=== PATIENT | female | born 1955 | race Caucasian/White ===

== ENCOUNTER → 2021-05-21 10:59 | Outpatient (CLI) | payer MEDICARE, SELFPAY ==
--- NOTE | ~2021-05-21 | MM_ITS ---
EXAMINATION: MM screening [facility] BI w tl HISTORY: Screening TECHNIQUE: Craniocaudal and mediolateral oblique 3-D tomosynthesis images were obtained and synthetic 2-D images were generated. CAD analysis was submitted and interpreted. COMPARISON: Comparison to multiple prior studies sequentially, with oldest reviewed study dated 03/07. BREAST PARENCHYMAL COMPOSITION: There are scattered areas of fibroglandular density. FINDINGS: There is no evidence of suspicious mass, calcification, or architectural distortion to sugg est malignancy in either breast. There has been no suspicious interval change. IMPRESSION: 1. No mammographic evidence of malignancy. 2. Recommend routine screening mammography in one year. BI-RADS Category 1: Negative Reviewed, dictated and finalized at location A.
--- NOTE | ~2021-05-21 | DEXA_ITS ---
Bone Density Report Name: Yessy Reed Age: 65 Sex: Female Ethnicity: White Date of : 1955 Indication: osteopenia; postmenopausal Referring Provider: MADELIN LUIS Study: Bone densitometry was performed. Exam Date: May 21, 2021 Accession number: [id number] Bone Density: Region BMD T-score Z-score Classification AP Spine (L1-L4) 0.927 -1.1 0.8 Osteopenia Femoral Neck (Left) 0.657 -1.7 -0.1 Osteopenia Total Hip (Left) 0.773 -1.4 0.0 Osteopenia Femoral Neck (Right) 0.656 -1.7 -0.1 Osteopenia Total Hip (Right) 0.766 -1.4 -0.1 Osteopenia Total Hip Mean 0.770 -1.4 -0.1 Osteopenia World Health Organization criteria for BMD impression classify patients as: Normal (T-score at or above -1.0), Osteopenia (T-score between -1.0 and -2.5), or Osteoporosis (T-score at or below -2.5). 10-year Fracture Risk(1): Major Osteoporotic Fracture 11% Hip Fracture 2.0% Reported Risk Factors: [place] (), Neck BMD=0.656, BMI=20.4, alcohol use (1) FRAX(R) Version 3.08. Fracture probability calculated for an untreated patient. Fracture probability may be lower if the patient has received treatment. Previous Exams: Region Exam Age BMD T-score BMD Change BMD Change Date g/cm2 vs Baseline vs Previous AP Spine(L1-L4) 05/21/2021 65 0.927 -1.1 0.020 0.020 05/19/2019 63 0.907 -1.3 Total Hip(Left) 05/21/2021 65 0.773 -1.4 0.012 0.012 05/19/2019 63 0.761 -1.5 Total Hip(Right) 05/21/2021 65 0.766 -1.4 0.009 0.009 05/19/2019 63 0.757 -1.5 *Denotes significance at 95% confidence level, LSC for AP Spine = 0.022 g/cm2, LSC for Total Hip = 0.027 g/cm2 Clinical Information Provided by Patient: Has 3 or more alcoholic drinks per day Has used the following medications: Vitamin D, Calcium Patient maximum height was 63.8 Menopause Age: 50 No regular weight bearing exercise Drinks caffeinated beverages Onset of menses at age 10 Number of children 2 Impression: The patient has low bone mass, based on the Left Femoral Neck T-score. The patient has an estimated ten-year risk of hip fracture of 2% and an estimated ten-year risk of major fracture of 11%, based on the WHO FRAX algorithm. The patient has risk factors, including: excessive alcohol use. No significant bone loss was observed. Discussion: BONE DENSITY IS LOW AT ONE OR MORE SKELETAL SITES. This patient's lowest T-score
== END ==
PROVIDERS: PCP Family Medicine; Visit Provider Family Medicine
DX: Z12.31 Encounter for screening mammogram for malignant neoplasm of breast (principal); Z78.0 Asymptomatic menopausal state; M85.89 Other specified disorders of bone density and structure, multiple sites
CPT/HCPCS: 77063; 77067; 77080

== ENCOUNTER 2022-06-17 08:00 | Outpatient (CLI) | payer MEDICARE, SELFPAY ==
[2022-06-17 20:02] LABS: Alanine Aminotransferase 12 U/L (6-35); Alkaline Phosphatase 51 U/L (38-126); Anion Gap 10 mmol/L (8-16); Aspartate Amino Transferase 46 U/L (14-36); Bilirubin,Total 0.4 mg/dL (0.2-1.3); Blood Urea Nitrogen 17 mg/dL (7-17); Calcium 9.1 mg/dL (8.4-10.2); Carbon Dioxide 29 mmol/L (22-30); Chloride 103 mmol/L (98-107); Cholesterol 173 mg/dL (0-200); Estimated Glomerular Filt Rate > 60; Glucose 82 mg/dL (65-110); HDL Direct 67 mg/dL; Sodium 142 mmol/L (137-145); Triglycerides 57 mg/dL (<150)
[2022-06-17 20:13] LABS: LDL Cholesterol Direct 78 mg/dL
[2022-06-17 20:15] LABS: Hemoglobin A1C 5.5 % (<5.7)
[2022-06-17 20:19] LABS: Basophils Percent Auto 0.7 % (0.2-1.2); Eosinophils Percent Auto 0.5 % (0-4.4); Hematocrit 39.1 % (37.0-47.0); Hemoglobin 12.9 g/dL (12.0-15.0); Immature Granulocyte Absolute 0.02 K/mm3 (0.00-0.031); Immature Granulocyte Percent A 0.5 % (0-0.5); Lymphocytes Absolute Auto 1.26 K/mm3 (0.9-3.2); Lymphocytes Percent Auto 28.7 % (18.3-44.2); Mean Corpuscular Hemoglobin 32.3 pg (26-34); Mean Corpuscular Volume 97.8 fl (80-100); Mean Platelet Volume 9.8 fl (7.4-10.4); Monocytes Absolute Auto 0.3 K/mm3 (0.1-0.6); Monocytes Percent Auto 7.5 % (2.6-8.5); Neutrophils Absolute Auto 2.7 K/mm3 (1.3-6.7); Neutrophils Percent Auto 62.1 % (45.5-73.1); Platelet Count Result 292 k/mm3 (150-375); Red Cell Distribution Width 12.8 % (11.5-14.5); White Blood Count 4.4 K/mm3 (4.5-10.0)
== END 2022-06-17 08:01 | disposition home or self-care (01) ==
PROVIDERS: PCP Family Medicine; Visit Provider Family Medicine
DX: E78.5 Hyperlipidemia, unspecified (principal); I10 Essential (primary) hypertension; R73.01 Impaired fasting glucose; Z00.00 Encounter for general adult medical examination without abnormal findings
CPT/HCPCS: 36415; 80053; 80061; 83036; 84443; 85025

== ENCOUNTER 2022-07-24 09:13 | Outpatient (CLI) | payer MEDICARE, SELFPAY ==
[2022-07-24 18:39] LABS: Basophils Percent Auto 0.6 % (0.2-1.2); Eosinophils Percent Auto 0.8 % (0-4.4); Hematocrit 38.9 % (37.0-47.0); Hemoglobin 12.6 g/dL (12.0-15.0); Immature Granulocyte Absolute 0.01 K/mm3 (0.00-0.031); Immature Granulocyte Percent A 0.2 % (0-0.5); Lymphocytes Absolute Auto 1.66 K/mm3 (0.9-3.2); Lymphocytes Percent Auto 31.6 % (18.3-44.2); Mean Corpuscular HGB Conc 32.4 g/dl (32-36); Mean Corpuscular Hemoglobin 32.1 pg (26-34); Mean Corpuscular Volume 99.2 fl (80-100); Mean Platelet Volume 9.7 fl (7.4-10.4); Monocytes Absolute Auto 0.5 K/mm3 (0.1-0.6); Monocytes Percent Auto 8.8 % (2.6-8.5); Neutrophils Absolute Auto 3.1 K/mm3 (1.3-6.7); Platelet Count Result 271 k/mm3 (150-375); Red Blood Count 3.92 M/mm3 (4.2-5.4); Red Cell Distribution Width 13.4 % (11.5-14.5); White Blood Count 5.3 K/mm3 (4.5-10.0)
[2022-07-24 19:24] LABS: Hemoglobin A1C 5.6 % (<5.7)
== END 2022-07-24 09:14 | disposition home or self-care (01) ==
LOC: ANHGOSHLAB 09:19
PROVIDERS: PCP Family Medicine; Visit Provider Family Medicine
DX: E78.5 Hyperlipidemia, unspecified (principal); I10 Essential (primary) hypertension; R73.01 Impaired fasting glucose; D72.819 Decreased white blood cell count, unspecified
CPT/HCPCS: 36415; 83036; 85025

== ENCOUNTER 2023-08-03 13:41 | Outpatient (CLI) | payer MEDICARE, SELFPAY ==
--- NOTE | ~2023-08-03 | MM_ITS ---
EXAMINATION: MM screening [facility] BI w tl HISTORY: Screening mammogram TECHNIQUE: Craniocaudal and mediolateral oblique 3-D tomosynthesis images were obtained and synthetic 2-D images were generated. CAD analysis was submitted and interpreted. COMPARISON: 05/21/2021, 05/19/2019, 04/10/2017 BREAST PARENCHYMAL COMPOSITION: The breasts are heterogeneously dense, which may obscure small masses . FINDINGS: No suspicious mass, calcification, or architectural distortion are identified in either dorita ast to suggest malignancy. There has been no suspicious interval change. IMPRESSION: 1. No mammographic evidence of malignancy. 2. Recommend routine screening mammography in one year. BI-RADS Category 1: Negative Reviewed, dictated and finalized at location A. [employer]
== END 2023-08-03 13:42 | disposition home or self-care (01) ==
LOC: ANHIMG 13:43
PROVIDERS: PCP Family Medicine; Visit Provider Physician Assistant
DX: Z12.31 Encounter for screening mammogram for malignant neoplasm of breast (principal)
CPT/HCPCS: 77063; 77067

== ENCOUNTER 2023-08-05 13:50 | Outpatient (CLI) | payer MEDICARE, SELFPAY ==
--- NOTE | ~2023-08-05 | DEXA_ITS ---
Bone Density Report Name: BRANDI TAVARES Age: 67 Sex: Female Ethnicity: White Date of : 1955 Indication: postmenopausal; screening for osteoporosis; cancer; Referring Provider: PRATIBHA CONNELL Study: Bone densitometry was performed. Exam Date: August 05, 2023 Accession number: [id number] Bone Density: Region BMD T-score Z-score Classification AP Spine(L1-L4) 0.857 -1.7 0.4 Osteopenia Femoral Neck (Left) 0.646 -1.8 -0.1 Osteopenia Total Hip (Left) 0.760 -1.5 0.0 Osteopenia Femoral Neck (Right) 0.657 -1.7 0.0 Osteopenia Total Hip (Right) 0.736 -1.7 -0.2 Osteopenia Total Hip Mean 0.748 -1.6 -0.1 Osteopenia World Health Organization criteria for BMD impression classify patients as: Normal (T-score at or above -1.0), Osteopenia (T-score between -1.0 and -2.5), or Osteoporosis (T-score at or below -2.5). 10-year Fracture Risk: FRAX not reported because: Treated for osteoporosis Clinical Information Provided by Patient: Is being treated for osteoporosis Has used the following medications: Vitamin D Has the following medical conditions: Cancer Patient maximum height was 63.5 Menopause Age: 48 No regular weight bearing exercise Drinks caffeinated beverages Onset of menses at age 10 Number of children 2 Impression: The patient has low bone mass, based on the Left Femoral Neck T-score. Discussion: It is important to ask patients whether they are taking their medications and to encourage continued and appropriate compliance with their osteoporosis therapies to reduce fracture risk. It is also important to review their risk factors and encourage appropriate calcium and vitamin D intakes, exercise, fall prevention and other lifestyle measures. Follow-Up: Consider a repeat BMD and Vertebral Fracture Assessment (VFA) exam in 2 years or sooner if medically necessary, to reassess this patient's status. Reported by: [facility] on 08/05/2023 2:17:00 PM. Reviewed, dictated and finalized at location AJoya AVILA
== END 2023-08-05 13:51 | disposition home or self-care (01) ==
LOC: ANHIMG 13:51
PROVIDERS: PCP Family Medicine; Visit Provider Physician Assistant
DX: M85.89 Other specified disorders of bone density and structure, multiple sites (principal)
CPT/HCPCS: 77080

== ENCOUNTER 2024-03-29 06:57 | Outpatient (CLI) | payer MEDICARE, SELFPAY ==
[2024-03-29 08:25] LABS: Vitamin D 25 Hydroxy 55.7 ng/mL
== END 2024-03-29 06:58 | disposition home or self-care (01) ==
LOC: ANHLAB 07:00
PROVIDERS: PCP Family Medicine; Visit Provider Family Medicine
DX: M85.80 Other specified disorders of bone density and structure, unspecified site (principal); E78.01 Familial hypercholesterolemia; Z78.0 Asymptomatic menopausal state
CPT/HCPCS: 36415; 82306

== ENCOUNTER 2024-11-17 09:03 | Outpatient (CLI) | payer MEDICARE, SELFPAY ==
[2024-11-17 14:57] LABS: Basophils Percent Auto 0.4 % (0.2-1.2); Eosinophils Percent Auto 0.1 % (0-4.4); Hematocrit 37.5 % (37.0-47.0); Hemoglobin 12.3 g/dL (12.0-15.0); Immature Granulocyte Absolute 0.04 K/mm3 (0.00-0.031); Immature Granulocyte Percent A 0.5 % (0-0.5); Lymphocytes Absolute Auto 2.21 K/mm3 (0.9-3.2); Lymphocytes Percent Auto 28.5 % (18.3-44.2); Mean Corpuscular HGB Conc 32.8 g/dl (32-36); Mean Corpuscular Hemoglobin 31.5 pg (26-34); Mean Corpuscular Volume 95.9 fl (80-100); Mean Platelet Volume 9.5 fl (7.4-10.4); Monocytes Absolute Auto 0.6 K/mm3 (0.1-0.6); Monocytes Percent Auto 7.1 % (2.6-8.5); Neutrophils Absolute Auto 4.9 K/mm3 (1.3-6.7); Neutrophils Percent Auto 63.4 % (45.5-73.1); Platelet Count Result 341 k/mm3 (150-375); Red Blood Count 3.91 M/mm3 (4.2-5.4); Red Cell Distribution Width 12.7 % (11.5-14.5); White Blood Count 7.8 K/mm3 (4.5-10.0)
[2024-11-17 17:46] LABS: Anion Gap 6 mmol/L (4-12); Blood Urea Nitrogen 23 mg/dL (7-17); Calcium 9.3 mg/dL (8.4-10.2); Carbon Dioxide 31 mmol/L (22-30); Chloride 101 mmol/L (98-107); Cholesterol 194 mg/dL (0-200); Estimated Glomerular Filt Rate > 60; Glucose 81 mg/dL (65-110); HDL Direct 88 mg/dL; Potassium 3.9 mmol/L (3.4-5.0); Sodium 138 mmol/L (137-145); Triglycerides 61 mg/dL (<150)
[2024-11-17 17:57] LABS: LDL Cholesterol Direct 78 mg/dL
[2024-11-18 03:47] LABS: Hemoglobin A1C 5.6 % (<5.7)
== END 2024-11-17 09:04 | disposition home or self-care (01) ==
LOC: ANHGOSHLAB 09:04
PROVIDERS: PCP Nurse Practitioner Family; Visit Provider Nurse Practitioner Family
DX: E78.5 Hyperlipidemia, unspecified (principal); I10 Essential (primary) hypertension; M85.80 Other specified disorders of bone density and structure, unspecified site; R42 Dizziness and giddiness; R73.01 Impaired fasting glucose
CPT/HCPCS: 36415; 80048; 80061; 83036; 84443; 85025

== ENCOUNTER 2025-01-09 12:10 | Emergency (ER) | payer MEDICARE, SELFPAY ==
[2025-01-09] VITALS (18 sets, daily range): BP systolic 117–144; BP diastolic 71–91; PULSE 60–77; RESP 10–25; TEMP 36.6; O2SAT 97–100
--- NOTE | ~2025-01-09 | XR_ITS ---
EXAMINATION: XR chest 2V DATE: 01/09/2025 12:58 INDICATION: Chest pain TECHNIQUE: PA and lateral views of the chest were obtained. COMPARISON: None FINDINGS: Hyperexpansion lungs along with increased retrosternal clear space and some flattening of the diaphra gm on the lateral projection suggestive but not diagnostic of COPD. No airspace opacities, pulmonary edema, pleural effusion or pneumothorax. Heart size is normal. IMPRESSION: 1. Hyperexpansion of the lungs suggestive but not diagnostic of COPD. No acute cardiopulmonary diseas e. Reviewed, dictated and finalized at location A. IMPRESSION: 1. Hyperexpansion of the lungs suggestive but not diagnostic of COPD. No acute cardiopulmonary disease.
--- NOTE | 2025-01-09 12:12 | ECG_ITS ---
Test Date: 2025-01-09 12:27:30 Measurements Intervals [place] Rate: 66 P: 73 GA: 149 QRS: 88 QRSD: 89 T: 61 QT: 399 QTc: 420 Interpretive Statements SINUS RHYTHM POSSIBLE RIGHT VENTRICULAR CONDUCTION DELAY BORDERLINE ST-T WAVE ABNORMALITY- ANTERIOR LEADS BORDERLINE ECG No previous ECG available for comparison Electronically Signed On 01-09-2025 12:52:48 CDT by Nicola Shea D.O.
[2025-01-09 12:59] LABS: Basophils Percent Auto 0.7 % (0.2-1.2); Eosinophils Percent Auto 0.5 % (0-4.4); Hematocrit 39.2 % (37.0-47.0); Immature Granulocyte Absolute 0.02 K/mm3 (0.00-0.031); Immature Granulocyte Percent A 0.5 % (0-0.5); Lymphocytes Absolute Auto 1.24 K/mm3 (0.9-3.2); Mean Corpuscular HGB Conc 33.2 g/dl (32-36); Mean Corpuscular Volume 96.6 fl (80-100); Mean Platelet Volume 9.7 fl (7.4-10.4); Monocytes Absolute Auto 0.3 K/mm3 (0.1-0.6); Monocytes Percent Auto 7.4 % (2.6-8.5); Neutrophils Absolute Auto 2.8 K/mm3 (1.3-6.7); Neutrophils Percent Auto 62.9 % (45.5-73.1); Platelet Count Result 202 k/mm3 (150-375); Red Blood Count 4.06 M/mm3 (4.2-5.4); Red Cell Distribution Width 13.1 % (11.5-14.5); White Blood Count 4.4 K/mm3 (4.5-10.0)
[2025-01-09 13:07] LABS: Alanine Aminotransferase 11 U/L (6-35); Albumin Level 4.6 g/dL (3.5-5.1); Alkaline Phosphatase 54 U/L (38-126); Anion Gap 10 mmol/L (4-12); Aspartate Amino Transferase 23 U/L (14-36); Bilirubin,Total 0.4 mg/dL (0.2-1.3); Blood Urea Nitrogen 16 mg/dL (7-17); Calcium 9.4 mg/dL (8.4-10.2); Carbon Dioxide 28 mmol/L (22-30); Chloride 100 mmol/L (98-107); Estimated CRCL calculation 57 ml/min; Estimated Glomerular Filt Rate > 60; Glucose 100 mg/dL (65-110); Lipase 44 U/L (23-300); Potassium 3.6 mmol/L (3.4-5.0); Sodium 138 mmol/L (137-145)
[2025-01-09 13:08] LABS: INR 0.9; Prothrombin Time 12.7 Seconds (11.1-14.7)
[2025-01-09 13:18] LABS: Troponin I < 0.012 ng/mL (0.000-0.034)
--- NOTE | 2025-01-09 15:28 | ECG_ITS ---
Test Date: 2025-01-09 15:32:08 Measurements Intervals [place] Rate: 64 P: 64 AK: 158 QRS: 77 QRSD: 93 T: 56 QT: 408 QTc: 422 Interpretive Statements SINUS RHYTHM INCOMPLETE RIGHT BUNDLE BRANCH BLOCK BASELINE ARTIFACT- I, III, AVR, AVL, AVF BORDERLINE ECG Compared to ECG 01/09/2025 12:27:30 No significant changes Electronically Signed On 01-09-2025 15:54:51 CDT by Nicola Shea D.O.
[2025-01-09 15:48] LABS: Troponin I < 0.012 ng/mL (0.000-0.034)
[2025-01-09 15:53] LABS: D Dimer 0.37 ug/mL (<0.48)
--- NOTE | 2025-01-09 15:55 | ED_ITS ---
HPI - Chest Pain General Chief Complaint: Chest Pain Stated Complaint: Upper chest pain, lightheaded Time Seen by Provider: 01/09/25 14:46 Source: patient, RN notes reviewed and old records reviewed Mode of arrival: ambulatory Limitations: no limitations History of Present Illness HPI narrative: This is a 69 year old female with history of hypertension who presents for evaluation chest discomfort. She states this morning while she was eating breakfast she felt upper chest discomfort. She describes as muscle ache that goes across her collar bones. She denies cough, shortness of breath, vomiting, fever. She states her discomfort may be worse with breathing. She denies history of lung disease or heart disease. Her pain has been intermittent. She also reports history of anxiety and while she was riding in her car she felt anxiety , hyperventilated and reports feeling like she was going to pass out. Related Data Home Medications ?Medication ?Instructions ?Recorded ?Confirmed ?Last Taken ?Type cholecalciferol (vitamin D3) 50 50 mcg PO DAILY 07/30/22 01/09/25 Unknown History mcg (2,000 unit) capsule Allergies Allergy/AdvReac Type Severity Reaction Status Date / Time Latex, Natural Rubber AdvReac Unknown Unknown Verified 01/09/25 15:32 [facility] Past Medical History Medical History Normal colonoscopy 2016 normal/repeat in 10 years Symptomatic menopausal or female climacteric states Sacroiliac joint pain COVID-19 12.9.20 positive/ symptoms Family History Family History Sibling Family history of cardiovascular disease Mother Family history of dementia Hypertension Family history of arthritis Father Family history of lung cancer Family history of coronary artery disease Grandparent Family history of coronary artery disease Other Family history of anemia Social History Social History Smoking status: Former smoker Smoking end date: 09/21/83 Alcohol intake: current Drinks per week: 17 Substance use: never Substance use type: does not use Lack of Transportation: No Lack of Food: Never True Current Housing: I Have Housing Concerned About Future Housing: No Difficulty Paying Gas/Electric Bills: No Difficulty Paying for Meds: No Currently Unemployed: No Education: High School Diploma/GED Difficulty w/ Childcare or Family Care: No Living arrangements: with family Occupation/Education: retired Gender identity (if verbalized by the patient): Female Spiritual care concerns: No Agree to blood products: Yes Exam 2 Narrative: GENERAL: Well-appearing, well-nourished, and in no acute distress. HEAD: Normocephalic, atraumatic EYES: PERRLA and EOMI, conjunctiva clear without discharge THROAT:Mucous membranes moist, Oropharynx normal without erythema, exudate, peritonsillar swelling or fluctuance NECK: Supple, without lymphadenopathy or mass RESPIRATORY: No respiratory distress, Airway patent, Respirations non-labored, Clear to auscultation without rales, rhonchi or wheeze HEART: Regular rate and rhythm. No murmur heard. Normal peripheral pulses. ABDOMEN: Soft, nontender, nondistended, normal active bowel sounds. No masses. No rebound or guarding, No organomegaly. EXTREMITIES: No edema, normal strength with full range of motion. SKIN: Warm, dry, normal color without rash NEURO: Alert and oriented x3. CN 2-12 grossly intact. No focal deficits. PSYCH: Normal mood and affect. Course Reevaluation(s) Reevaluation #1: Patient states that her discomfort has complete resolved and it was resolving prior to nitro. I have discussed troponin is negative and d sonia negative. She was given return precautions and that she needed for follow up with PCP. NC has been ruled out but I discussed she will still benefit from outpatient assessment for heart disease. Date: 01/09/25 Time: 16:38 Vital Signs Vital signs: Vital Signs Temperature 97.9 F 01/09/25 12:31 Pulse Rate 70 01/09/25 12:31 Respiratory Rate 16 01/09/25 12:31 Blood Pressure 133/76 01/09/25 12:31 Pulse Oximetry 100 01/09/25 12:31 Oxygen Delivery Room Air 01/09/25 12:31 Temperature 97.9 F 01/09/25 12:31 Pulse Rate 64 01/09/25 16:27 Respiratory Rate 17 01/09/25 16:27 Blood Pressure 140/88 01/09/25 16:27 Pulse Oximetry 100 01/09/25 16:27 Oxygen Delivery Room Air 01/09/25 15:30 MDM - Chest Pain Differential Diagnosis Differential diagnosis: Likely fracture of rib, stable angina, unstable angina pectoris, atypical chest pain, costochondritis and chest pain Medical Records Data Attestation: I reviewed the patient's medical records. Lab Data Attestation: I reviewed the patient's lab results. 01/09/25 12:49 01/09/25 12:49 Labs: Lab Results 01/09/25 01/09/25 01/09/25 Range/Units 12:48 12:49 15:23 WBC 4.4 L (4.5-10.0) K/mm3 RBC 4.06 L (4.2-5.4) M/mm3 Hgb 13.0 (12.0-15.0) g/dL Hct 39.2 (37.0-47.0) % MCV 96.6 (80-100) fl MCH 32.0 (26-34) pg MCHC 33.2 (32-36) g/dl RDW 13.1 (11.5-14.5) % Plt Count 202 (150-375) k/mm3 MPV 9.7 (7.4-10.4) fl Immature Gran % (Auto) 0.5 (0-0.5) % Neut % (Auto) 62.9 (45.5-73.1) % Lymph % (Auto) 28.0 (18.3-44.2) % Sabine % (Auto) 7.4 (2.6-8.5) % Eos % (Auto) 0.5 (0-4.4) % Baso % (Auto) 0.7 (0.2-1.2) % Lymph # (Auto) 1.24 (0.9-3.2) K/mm3 Sabine # (Auto) 0.3 (0.1-0.6) K/mm3 Eos # (Auto) 0.0 (0-0.3) K/mm3 Baso # (Auto) 0.0 (0.0-0.1) K/mm3 Abs Immat Gran (auto) 0.02 (0.00-0.031) K/mm3 Absolute Neuts (auto) 2.8 (1.3-6.7) K/mm3 Absolute Nucleated RBC 0.000 (0.0-0.012) K/mm3 Nucleated RBC % 0.0 (0.0-0.2) % PT 12.7 (11.1-14.7) Seconds INR 0.9 APTT 24.0 (22.3-36.8) Seconds D-Dimer 0.37 (<0.48) ug/mL Sodium 138 (137-145) mmol/L Potassium 3.6 (3.4-5.0) mmol/L Chloride 100 (98-107) mmol/L Carbon Dioxide 28 (22-30) mmol/L Anion Gap 10 (4-12) mmol/L BUN 16 (7-17) mg/dL Creatinine 0.69 L (0.7-1.0) mg/dL Estim Creat Clear Calc 57 ml/min Estimated GFR > 60 (59 - ) Glucose 100 (65-110) mg/dL Calcium 9.4 (8.4-10.2) mg/dL Total Bilirubin 0.4 (0.2-1.3) mg/dL AST 23 (14-36) U/L ALT 11 (6-35) U/L Alkaline Phosphatase 54 (38-126) U/L Troponin I < 0.012 < 0.012 (0.000-0.034) ng/mL Total Protein 8.0 (6.3-8.2) g/dL Albumin 4.6 (3.5-5.1) g/dL Lipase 44 (23-300) U/L Imaging Data Radiologist's impression: ITS Impressions Chest X-Ray 01/09/25 13:08 IMPRESSION: 1. Hyperexpansion of the lungs suggestive but not diagnostic of COPD. No acute cardiopulmonary disease. Discharge Plan Discharge Clinical Impression: Chest pain Qualifiers: Chest pain type: unspecified Qualified Code(s): R07.9 - Chest pain, unspecified Patient Disposition: Home Condition: Stable Instructions: Antibiotic Form, Chest Pain (ED) Additional Instructions: Call your primary care provider tomorrow to arrange follow up appointment. Patient Language: Azeri Prescriptions: No Action cholecalciferol (vitamin D3) 50 mcg (2,000 unit) capsule 50 mcg PO DAILY lisinopril 10 mg tablet See Rx Instructions .ROUTE .COMPLEX Qty: 90 0RF Dose Instruction: Take 1 tablet by mouth once daily Rx Instructions: Take 1 tablet by mouth once daily hydrochlorothiazide 12.5 mg tablet See Rx Instructions .ROUTE .COMPLEX Qty: 90 1RF Dose Instruction: Take 1 tablet by mouth once daily Rx Instructions: Take 1 tablet by mouth once daily Follow-up/Referrals: Kindra Bower MD [Primary Care Provider] - Quality HEART score for chest pain patients History: slightly suspicious ECG: normal Age: > or = to 65 years Risk factors: 1 or 2 risk factors Troponin: < or = to 1x normal limit Heart score: 3
[2025-01-09] MEDS: NITROGLYCERIN SL 0.4 MG TABLET SUBLINGUAL (16:26)
== END 2025-01-09 17:13 | disposition home or self-care (01) ==
PROVIDERS: Emergency Provider General Practice; PCP Family Medicine
DX: R07.9 Chest pain, unspecified (principal); Z87.891 Personal history of nicotine dependence
CPT/HCPCS: 36415; 71046; 80053; 83690; 84484; 85025; 85380; 85610; 85730; 93005; 99284; A9270

== ENCOUNTER 2025-02-07 10:15 | Outpatient (CLI) | payer MEDICARE, SELFPAY ==
--- NOTE | 2025-02-07 10:30 | EST_ITS ---
Patient Info Name: Yessy Reed Age: 69 years : 1955 Gender: Female Ht: 64 in Wt: 123 lbs BSA: 1.59 m2 HR: 63 bpm BP: 117 / 72 mmHg Exam Date: 02/07/2025 10:48 AM Patient Status: O Admit Date: 02/07/2025 Exam Type: CA stress echo Treadmill exercise stress echocardiogram is performed. Staff Attending Provider: Kindra Bower MD Exercise Technologist: Stacy Rosas Exercise Physician: Nicola Shea DO Stress Echo Findings Left Ventricle Appropriate increase in LV endocardial thickening with systole. Appropriate augmentation of contractility with systole. No wall motion abnormality. Left Ventricle Normal LV systolic function, no wall motion abnormality. Protocol: Juan Jose Stress ECG Details Stage: REST Duration (min): 0 min : 52 sec Speed (mph): 0.0 Grade (%): 0 HR (bpm): 65 SBP (mmHg): 117 DBP (mmHg): 72 METS: --- Stage: REST Duration (min): 14 min : 3 sec Speed (mph): 0.0 Grade (%): 0 HR (bpm): 65 SBP (mmHg): 117 DBP (mmHg): 72 METS: --- Stage: STAGE 1 Duration (min): 1 min : 0 sec Speed (mph): 1.7 Grade (%): 10 HR (bpm): 89 SBP (mmHg): 117 DBP (mmHg): 72 METS: --- Stage: STAGE 1 Duration (min): 2 min : 0 sec Speed (mph): 1.7 Grade (%): 10 HR (bpm): 98 SBP (mmHg): 117 DBP (mmHg): 72 METS: --- Stage: STAGE 1 Duration (min): 3 min : 0 sec Speed (mph): 1.7 Grade (%): 10 HR (bpm): 103 SBP (mmHg): 157 DBP (mmHg): 57 METS: --- Stage: STAGE 2 Duration (min): 1 min : 0 sec Speed (mph): 2.5 Grade (%): 12 HR (bpm): 108 SBP (mmHg): 157 DBP (mmHg): 57 METS: --- Stage: STAGE 2 Duration (min): 2 min : 0 sec Speed (mph): 2.5 Grade (%): 12 HR (bpm): 119 SBP (mmHg): 173 DBP (mmHg): 59 METS: --- Stage: STAGE 2 Duration (min): 3 min : 0 sec Speed (mph): 2.5 Grade (%): 12 HR (bpm): 123 SBP (mmHg): 173 DBP (mmHg): 59 METS: --- Stage: STAGE 3 Duration (min): 1 min : 0 sec Speed (mph): 3.4 Grade (%): 14 HR (bpm): 135 SBP (mmHg): 189 DBP (mmHg): 77 METS: --- Stage: STAGE 3 Duration (min): 1 min : 2 sec Speed (mph): 0.0 Grade (%): 0 HR (bpm): 138 SBP (mmHg): 189 DBP (mmHg): 77 METS: --- Stage: RECOVERY Duration (min): 0 min : 57 sec Speed (mph): 0.0 Grade (%): 0 HR (bpm): 102 SBP (mmHg): 189 DBP (mmHg): 77 METS: --- Stage: RECOVERY Duration (min): 1 min : 57 sec Speed (mph): 0.0 Grade (%): 0 HR (bpm): 87 SBP (mmHg): 189 DBP (mmHg): 77 METS: --- Stage: RECOVERY Duration (min): 2 min : 57 sec Speed (mph): 0.0 Grade (%): 0 HR (bpm): 78 SBP (mmHg): 189 DBP (mmHg): 77 METS: --- Stage: RECOVERY Duration (min): 3 min : 21 sec Speed (mph): 0.0 Grade (%): 0 HR (bpm): 81 SBP (mmHg): 139 DBP (mmHg): 68 METS: --- Rest HR: 65 bpm Peak HR: 138 bpm Rest Sys BP: 117 mmHg Peak Sys BP: 189 mmHg Max Pred HR: 149 bpm % Max Pred HR: 93 % Target HR: 127 bpm Max RPP: 26,082 bpm*mmHg Nguyen Score: 2 Termination Reason: Reached target heart rate or workload Cardiac Symptoms: Shortness of breath Max ST Seg Deviation: 1 mm Total Time: 7 min : 2 sec Rest Siddiqi BP: 72 mmHg Peak Siddiqi BP: 77 mmHg Angina Score: None Total METS: 8.9 Resting ECG Sinus rhythm. Stress ECG No ST changes. Arrhythmias None. Report Signatures Stress ECG Echo
== END 2025-02-07 10:16 | disposition home or self-care (01) ==
PROVIDERS: PCP Family Medicine; Visit Provider Family Medicine
DX: R07.89 Other chest pain (principal)
CPT/HCPCS: 93351

== ENCOUNTER 2025-05-17 08:06 | Outpatient (CLI) | payer MEDICARE, SELFPAY ==
--- NOTE | ~2025-05-17 | MM_ITS ---
EXAMINATION: MM screening [facility] BI w tl HISTORY: Screening TECHNIQUE: Craniocaudal and mediolateral oblique 3-D tomosynthesis images were obtained and synthetic 2-D images were generated. CAD analysis was submitted and interpreted. COMPARISON: Comparison to multiple prior studies sequentially, with oldest reviewed study dated 03/07/2013. BREAST PARENCHYMAL COMPOSITION: There are scattered areas of fibroglandular density. FINDINGS: There is no evidence of suspicious mass, calcification, or architectural distortion to suggest malignancy in either breast. IMPRESSION: 1. No mammographic evidence of malignancy. 2. Recommend routine screening mammography in one year. BI-RADS Category 1: Negative Reviewed, dictated and finalized at location B.
== END 2025-05-17 08:07 | disposition home or self-care (01) ==
LOC: ANHFOHIMG 08:07
PROVIDERS: PCP Family Medicine; Visit Provider Family Medicine
DX: Z12.31 Encounter for screening mammogram for malignant neoplasm of breast (principal)
CPT/HCPCS: 77063; 77067

== ENCOUNTER 2025-08-22 14:24 | Outpatient (CLI) | payer MEDICARE, SELFPAY ==
--- NOTE | ~2025-08-22 | DEXA_ITS ---
Bone Density Report Name: BRANDI TAVARES Age: 69 Sex: Female Ethnicity: White Date of : 1955 Indication: osteopenia; cancer; Referring Provider: JUANITO VELAZQUEZ Study: Bone densitometry was performed. Exam Date: August 22, 2025 Accession number: [id number] Bone Density: Region BMD T-score Z-score Classification AP Spine(L1-L4) 0.820 -2.1 0.1 Osteopenia Femoral Neck (Left) 0.622 -2.0 -0.2 Osteopenia Total Hip (Left) 0.754 -1.5 0.1 Osteopenia Femoral Neck (Right) 0.642 -1.9 0.0 Osteopenia Total Hip (Right) 0.724 -1.8 -0.2 Osteopenia Total Hip Mean 0.739 -1.7 -0.1 Osteopenia World Health Organization criteria for BMD impression classify patients as: Normal (T-score at or above -1.0), Osteopenia (T-score between -1.0 and -2.5), or Osteoporosis (T-score at or below -2.5). 10-year Fracture Risk(1): Major Osteoporotic Fracture 14% Hip Fracture 3.8% Reported Risk Factors: [place] (), Neck BMD=0.622, BMI=21.0, alcohol use (1) FRAX(R) Version 3.08. Fracture probability calculated for an untreated patient. Fracture probability may be lower if the patient has received treatment. Previous Exams: -- Region Exam Age BMD T-score BMD Change BMD Change Date g/cm2 vs Baseline vs Previous -- AP Spine (L1-L4) 08/22/2025 69 0.820 -2.1 -9.6%* -4.3%* 08/05/2023 67 0.857 -1.7 -5.5%* -7.5%* 05/21/2021 65 0.927 -1.1 2.2% 2.2% 05/19/2019 63 0.907 -1.3 Total Hip(Left) 08/22/2025 69 0.754 -1.5 -0.8% -0.7% 08/05/2023 67 0.760 -1.5 -0.1% -1.7% 05/21/2021 65 0.773 -1.4 1.6% 1.6% 05/19/2019 63 0.761 -1.5 Total Hip(Right) 08/22/2025 69 0.724 -1.8 -4.3%* -1.7%# 08/05/2023 67 0.736 -1.7 -2.7%# -3.9%# 05/21/2021 65 0.766 -1.4 1.2% 1.2% 05/19/2019 63 0.757 -1.5 -- *Denotes significance at 95% confidence level, LSC for AP Spine = 0.022 g/cm2, LSC for Total Hip = 0.027 g/cm2 # Denotes dissimilar scan types or analysis methods Clinical Information Provided by Patient: Has 3 or more alcoholic drinks per day Has used the following medications: Vitamin D, Calcium Has the following medical conditions: Cancer, basal cell cancer Patient maximum height was 64 Menopause Age: 50 No regular weight bearing exercise Drinks caffeinated beverages Onset of menses at age 10 Number of children 2 Impression: The patient has low bone mass, based on the Total Spine T-score. The patient has an estimated ten-year risk of hip fracture of 3.8% and an estimated ten-year risk of major fracture of 14%, based on the WHO FRAX algorithm. The patient has risk factors, including: excessive alcohol use. The BMD for the AP Spine (L1-L4) decreased, changing by -4.3% since the last DXA exam. Discussion: BONE DENSITY IS LOW AT ONE OR MORE SKELETAL SITES. THE PATIENT'S BMD AND CLINICAL RISK FACTORS CONTRIBUTE TO THIS PATIENT'S INCREASED RISK OF FRACTURE. This patient's lowest T-score is low at one or more skeletal sites. It meets the World Health Organization's (WHO) criteria for ?low bone mass? (T-score between -1.0 and -2.5). The patient's 10-year risk of hip fracture as calculated by FRAX exceeds the threshold where pharmacological therapy is recommended by the National Osteoporosis Foundation (NOF). However, all treatment decisions require clinical judgment and consideration of individual patient factors, including patient preferences, comorbidities, previous drug use, risk factors not captured in the FRAX model (e.g., frailty, falls, vitamin D deficiency, increased bone turnover, interval significant decline in bone density) and possible under or overestimation of fracture risk by FRAX. The patient should follow a healthful lifestyle (good nutrition with adequate calcium and vitamin D, and appropriate weight-bearing exercise). Follow-Up: Consider a repeat BMD and Vertebral Fracture Assessment (VFA) exam in 2 years or sooner if medically necessary, to reassess this patient's status. Reported by: EDITH on 08/22/2025 2:42:00 PM. Reviewed, dictated and finalized at location A.
== END 2025-08-22 14:25 | disposition home or self-care (01) ==
LOC: MICIMG 14:25
PROVIDERS: PCP Family Medicine; Visit Provider Student in an Organized Health Care Education/Training Program
DX: M85.89 Other specified disorders of bone density and structure, multiple sites (principal); Z78.0 Asymptomatic menopausal state
CPT/HCPCS: 77080

== ENCOUNTER 2025-08-29 08:21 | Outpatient (CLI) | payer MEDICARE, SELFPAY | END 2025-08-29 08:22 | disposition home or self-care (01) | PROVIDERS: PCP Family Medicine; Visit Provider Family Medicine | DX: M85.80 Other specified disorders of bone density and structure, unspecified site (principal) | CPT/HCPCS: 36415; 82306 ==